=== PATIENT | female | born 1995 | race Caucasian/White ===

== ENCOUNTER 2018-07-13 23:08 | Emergency (ER) | payer OTHER ==
[~2018-07-13] VITALS: Ht 177.8 cm; Wt 79.4 kg
[2018-07-14] MEDS ORDERED: PREDNISONE 20 M20 MG PO (00:19)
[2018-07-14] MEDS ORDERED: VENTOLIN HFA 1818 GM INH (00:19)
[2018-07-14 00:54] VITALS: BP 121/64
== END 2018-07-14 00:57 | disposition home or self-care (01) ==
LOC: ER 23:08
DX: O99.512 Diseases of the respiratory system complicating pregnancy, second trimester (principal); J45.901 Unspecified asthma with (acute) exacerbation; Z3A.15 15 weeks gestation of pregnancy